=== PATIENT | male | born 1935 | race Caucasian/White ===

== ENCOUNTER 2017-01-28 18:38 | Emergency (ER) | payer OTHER ==
[2017-01-28 21:00] LABS: CALCIUM 8.5 mg/dL (8.5-10.1); CARBON DIOXIDE 25.5 mmol/L (21-32); CHLORIDE SERUM 103 mmol/L (98-107); GLUCOSE SERUM 107 mg/dL (74-106); POTASSIUM SERUM 3.8 mmol/L (3.5-5.1); SODIUM SERUM 139 mmol/L (136-145)
[2017-01-28 21:04] LABS: ALBUMIN 3.8 g/dL (3.4-5.0); ALKALINE PHOSPHATASE 90 U/L (46-116); ALT/SGPT 51 U/L (16-63); AST/SGOT 30 U/L (15-37); BILIRUBIN TOTAL 0.34 mg/dL (0.20-1.00); TOTAL PROTEIN, SERUM 6.9 g/dL (6.4-8.2)
[2017-01-28 21:08] LABS: BASOPHIL % 0.5 % (0-2); PLATELET COUNT 227 x10^3mcL (130-400); RED CELL DISTRIBUTION WIDTH 13.2 % (11.5-14.5)
[2017-01-28 21:26] LABS: AMPHETAMINE QUAL UR NONE DETECTED (NEG <=1000)
[2017-01-28 22:38] VITALS: BP 125/82
== END 2017-01-28 22:38 | disposition home or self-care (01) ==
LOC: ED 18:38
PROVIDERS: Emergency Medicine
DX: Z00.00 Encounter for general adult medical examination without abnormal findings (principal); F05 Delirium due to known physiological condition; G30.9 Alzheimer's disease, unspecified; F02.80 Dementia in other diseases classified elsewhere, unspecified severity, without behavioral disturbance, psychotic disturbance, mood disturbance, and anxiety; E03.9 Hypothyroidism, unspecified
CPT/HCPCS: 36415; G0480

== ENCOUNTER 2017-02-16 10:03 | Inpatient (IN) | payer OTHER ==
[~2017-02-16] VITALS: Ht 180.3 cm; Wt 73.0 kg
[2017-02-16 11:21] LABS: PLATELET COUNT 304 x10^3mcL (130-400); RED CELL DISTRIBUTION WIDTH 13.3 % (11.5-14.5)
[2017-02-16 11:39] LABS: ALBUMIN 3.4 g/dL (3.4-5.0); ALKALINE PHOSPHATASE 112 U/L (46-116); ALT/SGPT 55 U/L (16-63); AST/SGOT 25 U/L (15-37); CALCIUM 8.1 mg/dL (8.5-10.1); CARBON DIOXIDE 24.5 mmol/L (21-32); CHLORIDE SERUM 106 mmol/L (98-107); CREATININE SERUM 1.1 mg/dL (0.7-1.3); GLUCOSE SERUM 131 mg/dL (74-106); SODIUM SERUM 141 mmol/L (136-145); TOTAL PROTEIN, SERUM 7.3 g/dL (6.4-8.2)
[2017-02-16 11:51] LABS: CK-MB 1.1 ng/mL (0-3.6)
[2017-02-16 12:02] LABS: BASOPHIL % 0 % (0-2)
[2017-02-16 12:11] LABS: microscopic required? YES; urine erythrocyte NEGATIVE (NEGATIVE)
[2017-02-16] MEDS ORDERED: FLO4 PO (13:27)
[2017-02-16] MEDS ORDERED: SYNTHROID25 MCG PO (13:28)
[2017-02-16] MEDS ORDERED: SEROQUEL50 M1 PO (13:28)
[2017-02-16] MEDS ORDERED: ATIVAN1 MG PO (13:29)
[2017-02-16] MEDS ORDERED: PAXIL10 MG PO (13:29)
[2017-02-16] MEDS ORDERED: RAZADYNE4 MG PO (13:29)
[2017-02-16] MEDS ORDERED: IMODIUM A-D2 M3 PO (13:30)
[2017-02-16 14:13] LABS: MAGNESIUM 1.4 mg/dL (1.8-2.4); PHOSPHOROUS 2.2 mg/dL (2.5-4.9)
[2017-02-16 14:15] LABS: CHOLESTEROL/HDL RATIO 2.1
[2017-02-16 14:20] LABS: T3 TOTAL 0.66 ng/mL
[2017-02-16 14:47] LABS: FREE T4 1.18 ng/dL (0.76-1.46); FREE THYROXINE INDEX 3.1 ug/dL (1.4-4.5); T4(THYROXINE) 8.9 ug/dL (4.7-13.3)
[2017-02-16 15:23] VITALS: BP 140/74
[2017-02-16 20:28] VITALS: BP 119/69
[2017-02-16 22:20] VITALS: BP 110/60
[2017-02-17 05:37] VITALS: BP 110/51
[2017-02-17 06:11] LABS: PLATELET COUNT 253 x10^3mcL (130-400); RED CELL DISTRIBUTION WIDTH 13.2 % (11.5-14.5)
[2017-02-17 06:14] LABS: CALCIUM 7.6 mg/dL (8.5-10.1); CARBON DIOXIDE 21.3 mmol/L (21-32); CHLORIDE SERUM 113 mmol/L (98-107); GLUCOSE SERUM 131 mg/dL (74-106); SODIUM SERUM 143 mmol/L (136-145)
[2017-02-17 06:44] LABS: BASOPHIL % 0 % (0-2)
[2017-02-17 13:34] VITALS: BP 122/53
[2017-02-17 18:50] VITALS: BP 130/60
[2017-02-17 20:24] VITALS: BP 122/56
[2017-02-18 05:56] VITALS: BP 127/50
[2017-02-18 06:14] LABS: CALCIUM 8.2 mg/dL (8.5-10.1); CARBON DIOXIDE 24.9 mmol/L (21-32); CHLORIDE SERUM 109 mmol/L (98-107); GLUCOSE SERUM 134 mg/dL (74-106); MAGNESIUM 1.8 mg/dL (1.8-2.4); PHOSPHOROUS 1.7 mg/dL (2.5-4.9); POTASSIUM SERUM 3.3 mmol/L (3.5-5.1); SODIUM SERUM 141 mmol/L (136-145)
[2017-02-18 06:21] LABS: BASOPHIL % 0.1 % (0-2); PLATELET COUNT 284 x10^3mcL (130-400); RED CELL DISTRIBUTION WIDTH 13.1 % (11.5-14.5)
[2017-02-18 10:24] VITALS: BP 134/60
[2017-02-18 14:15] VITALS: BP 132/62
[2017-02-18 18:00] VITALS: BP 133/63
[2017-02-18 20:47] VITALS: BP 155/68
[2017-02-19 05:24] VITALS: BP 141/60
[2017-02-19 06:17] LABS: BASOPHIL % 0.2 % (0-2); PLATELET COUNT 300 x10^3mcL (130-400); RED CELL DISTRIBUTION WIDTH 12.8 % (11.5-14.5)
[2017-02-19 06:33] LABS: CARBON DIOXIDE 21.6 mmol/L (21-32); CHLORIDE SERUM 107 mmol/L (98-107); CREATININE SERUM 0.9 mg/dL (0.7-1.3); GLUCOSE SERUM 122 mg/dL (74-106); MAGNESIUM 1.5 mg/dL (1.8-2.4); PHOSPHOROUS 2.8 mg/dL (2.5-4.9); POTASSIUM SERUM 3.2 mmol/L (3.5-5.1); SODIUM SERUM 141 mmol/L (136-145)
[2017-02-19 08:58] VITALS: BP 134/62
[2017-02-19 12:30] VITALS: BP 149/67
[2017-02-19 19:14] VITALS: BP 117/61
[2017-02-19 19:30] VITALS: BP 139/61
[2017-02-20 11:01] LABS: CALCIUM 8.6 mg/dL (8.5-10.1); CARBON DIOXIDE 25.1 mmol/L (21-32); CHLORIDE SERUM 102 mmol/L (98-107); CREATININE SERUM 0.9 mg/dL (0.7-1.3); GLUCOSE SERUM 116 mg/dL (74-106); POTASSIUM SERUM 3.6 mmol/L (3.5-5.1); SODIUM SERUM 137 mmol/L (136-145)
[2017-02-20 14:15] VITALS: BP 116/64
[2017-02-20 16:28] VITALS: BP 132/67
[2017-02-20 19:50] VITALS: BP 146/64
[2017-02-21 06:45] VITALS: BP 154/63
[2017-02-21 07:10] LABS: BASOPHIL % 0.2 % (0-2); PLATELET COUNT 346 x10^3mcL (130-400)
[2017-02-21 07:29] LABS: CALCIUM 8.3 mg/dL (8.5-10.1); CARBON DIOXIDE 22.4 mmol/L (21-32); CHLORIDE SERUM 100 mmol/L (98-107); CREATININE SERUM 0.8 mg/dL (0.7-1.3); GLUCOSE SERUM 106 mg/dL (74-106); MAGNESIUM 1.4 mg/dL (1.8-2.4); POTASSIUM SERUM 3.3 mmol/L (3.5-5.1); SODIUM SERUM 134 mmol/L (136-145)
[2017-02-21 09:49] VITALS: BP 154/63
[2017-02-21] MEDS ORDERED: SYN25 PO (11:50)
[2017-02-21] MEDS ORDERED: LAC PO (11:53)
[2017-02-21] MEDS ORDERED: COL100 PO (11:54)
[2017-02-21] MEDS ORDERED: QUETIAPINE FUMA25 M1 PO (11:55)
[2017-02-21] MEDS ORDERED: ATI1 PO (11:55)
[2017-02-21] MEDS ORDERED: APAP/HYDROCODON1 T13 PO (11:56)
[2017-02-21] MEDS ORDERED: PAX20 PO (11:56)
[2017-02-21] MEDS ORDERED: TYL325 PO (11:56)
[2017-02-21] MEDS ORDERED: TEN50 PO (11:57)
[2017-02-21] MEDS ORDERED: FLO4 PO (12:00)
[2017-02-21] MEDS ORDERED: RAZADYNE4 MG PO (12:00)
[2017-02-21] MEDS ORDERED: FLA500 PO (12:05)
[2017-02-21] MEDS ORDERED: LEVAQUIN750 MG PO (12:05)
== END 2017-02-21 14:00 | DRG 177 ==
LOC: ED 10:03 → DU 13:08
PROVIDERS: Emergency Medicine; Family Medicine; ADMIT Family Medicine
DX: J69.0 Pneumonitis due to inhalation of food and vomit (principal); N17.0 Acute kidney failure with tubular necrosis; G93.41 Metabolic encephalopathy; I47.1 Supraventricular tachycardia; K56.7 Ileus, unspecified; J90 Pleural effusion, not elsewhere classified; E86.0 Dehydration; E87.6 Hypokalemia; E83.42 Hypomagnesemia; E03.9 Hypothyroidism, unspecified; D63.8 Anemia in other chronic diseases classified elsewhere; K57.30 Diverticulosis of large intestine without perforation or abscess without bleeding; N20.0 Calculus of kidney; M47.894 Other spondylosis, thoracic region; M19.011 Primary osteoarthritis, right shoulder; M19.012 Primary osteoarthritis, left shoulder; I10 Essential (primary) hypertension; G30.9 Alzheimer's disease, unspecified; F02.80 Dementia in other diseases classified elsewhere, unspecified severity, without behavioral disturbance, psychotic disturbance, mood disturbance, and anxiety; Z68.22 Body mass index [BMI] 22.0-22.9, adult
CPT/HCPCS: 83880; 84439; 94150; J0153; J1644; J2543; J3475; J3480; J3490; J7030; Q0092; Q9966